=== PATIENT | female | born 1945 | race Two or more races ===

== ENCOUNTER 2025-09-08 07:10 | Outpatient (CLI) | payer BC ==
[~2025-09-08] VITALS: Ht 149.9 cm; Wt 59.4 kg
[2025-09-08] MEDS: REGADENOSON 0.4 MG/5 ML SYRG IV ONE ×2 (08:58→08:59)
--- NOTE | 2025-09-14 12:08 | DVHSR ---
APPROVED REPORT Exam: Nuclear Stress Test Indication: HTN BMI: 0 Stress Test Details Stress Test: Pharmacologic stress testing performed using 0.4 mg of regadenoson per 5 mL given IV over 10 seconds. HR Resting HR: 64 bpm Max Heart Rate (APMHR): 139.918957 bpm Max HR Achieved: 103 bpm Target HR (85% APMHR): 118.218150 bpm % of APMHR: 74.10 Recovery HR: 85 bpm BP Resting BP: 146/90 mmHg Recovery BP: 140/70 mmHg ECG Resting ECG: Sinus Rhythm, BBB Clinical Reason for Termination: Completed protocol Nurse Comments Recieved pt. from [employer]. A/Ox4 on RA. Connected to panel monitor, VS stable. PIV flushes well. Reviewed POC. Pt. verbalized understanding of procedure including risks and side effects, agrees for stress testing. Lexiscan stress test performed per protocol. [employer] tech administered Cardiolite. Pt. tolerated well. Pt. stable, no change on exam. VS returned to baseline. Transferred to [employer] via wheelchair w/ tech. Stress ECG Conclusion lvef 86% no severe ischemia noted GI artifact noted inferior wall sr rbbb on ecg NM EXAM: Myocardial Perfusion REST/STRESS Imaging Protocol: Rest Tc-99m/Stress Tc-99m 1 day Resting Data Rest SPECT myocardial perfusion imaging was performed in supine position 60 minutes following the intravenous injection of 9.1 mCi of Tc-99m Sestamibi. Time of rest injection: 07:40 Date: 09/08/2025 Time of rest imagin:40 Date: 09/08/2025 Administration Route: IV Administration Site: Left Arm Pharmacologic Stress Pharmacologic stress test was performed by injecting Regadenoson 0.4 mg IV push followed by the intravenous injection of 27.1 mCi of Tc-99m Sestamibi. Time of stress injection: 09:00 Date: 09/08/2025 Time of stress imagin:00 Date: 09/08/2025 Administration Route: IV Administration Site: Left Arm Gated Stress SPECT was performed 60 minutes after stress injection. The images were gated to evaluate regional wall motion and calculate left ventricular ejection fraction. Stress only was performed in the Supine position. Nuclear Conclusion Nuclear Findings: negative for ischemia lvef 86% no severe ischemia noted GI artifact noted inferior wall sr rbbb on ecg
== END 2025-09-08 17:00 | disposition home or self-care (01) ==
LOC: XYW 07:10
PROVIDERS: ATTEND Specialist
DX: I45.4 Nonspecific intraventricular block (principal); I10 Essential (primary) hypertension; R00.2 Palpitations; E78.5 Hyperlipidemia, unspecified
CPT/HCPCS: 78452; 93017; A9500; J2785